=== PATIENT | male | born 1940 | race Caucasian/White ===

== ENCOUNTER 2017-07-27 15:41 | Emergency (ER) | payer MEDICARE, OTHER ==
[~2017-07-27] VITALS: Ht 160 cm; Wt 68.0 kg
[~2017-07-27 15:41] MED LIST: AMLO5 PO; AMOCLA250S PO; Amlodipine Bes2.5 MG PO; CALC.25 PO; CALCAVITD PO; CALCAVITDA PO; CHOL10002 PO; Calcitriol0.5 MCG PO; FENT25TP TOP; FURO40 PO; Ferrous Sulfat325 M2 PO; HYDACE10B PO; HYDACE5325 PO; HYDCHL12.5 PO; HYDCHL25 PO; HYDR1TAB94 PO; Hydrocodone-Ap1 EA20 PO; IBAN2.5 PO; Istalol2.5 ML; LISI20 PO; MAGOXI400 PO; MENS; METF500C PO; MORP15ER PO; Micro-K10 MEQ PO; OMEP20ER PO; OMEPRAZOLE MAGN20 MG PO; OXYC10ER PO; POTCHL10ER PO; SIMV40 PO; TAMS.4ER PO; TIMOPTIC 0.5%1 EACH BOTHEYES; TUMS300 MG PO; [UNRECOGNIZED DRUG - OTHER]
[2017-07-27 16:44] LABS: BASOPHILS ABSOLUTE AUTO 0.06 K/mm3 (0.00-0.23); BASOPHILS PERCENT AUTO 1 % (0-2); EOSINOPHILS ABSOLUTE AUTO 0.42 K/mm3 (0.00-0.68); EOSINOPHILS PERCENT AUTO 7 % (0-6); Hematocrit 34.5 % (37.0-53.0); Hemoglobin 10.9 g/dL (13.5-17.5); IMMATURE GRAN ABSOLUTE AUTO 0.02 K/mm3 (0.00-0.10); IMMATURE GRAN PERCENT AUTO 0 % (0-1); LYMPHOCYTES ABSOLUTE AUTO 1.17 K/mm3 (0.84-5.20); LYMPHOCYTES PERCENT AUTO 19 % (21-46); MONOCYTES ABSOLUTE AUTO 0.57 K/mm3 (0.16-1.47); MONOCYTES PERCENT AUTO 9 % (4-13); Mean Corpuscular HGB 29.3 pg (26.0-34.0); Mean Corpuscular HGB Conc 31.6 g/dL (31.5-36.5); Mean Corpuscular Volume 93 fL (80-100); Mean Platelet Volume 9.7 fL (9.1-12.4); NEUTROPHILS ABSOLUTE AUTO 3.86 K/mm3 (1.96-9.15); NEUTROPHILS PERCENT AUTO 63 % (41-73); Platelet Count 241 K/mm3 (150-400); RDW Coefficient Variation 12.7 % (11.7-14.2); RDW Standard Deviation 43.1 fL (35.1-46.3); Red Blood Cell Count 3.72 M/mm3 (4.30-5.90)
[2017-07-27 17:09] LABS: Albumin, Blood 3.3 g/dL (3.4-5.0); Albumin/Globulin Ratio 0.8 (0.8-1.8); Bilirubin, Total 0.3 mg/dL (0.1-1.0); Bun/Creatinine Ratio 11.6 (12.0-20.0); Calcium, Blood 8.9 mg/dL (8.5-10.1); Creatinine, Blood 1.72 mg/dL (0.60-1.20); Globulin, Blood 3.9 g/dL (2.2-4.0); Potassium, Blood 4.2 mmol/L (3.5-5.5); Total Protein, Blood 7.2 g/dL (6.4-8.2)
[2017-07-27] MEDS ORDERED: ALBU90OI INH (19:11)
[2017-07-27] MEDS ORDERED: Zithromax250 MG PO (19:11)
[2017-07-27] MEDS ORDERED: Atrovent Inha12.9 GM INH (19:11)
[2017-07-27] MEDS ORDERED: Prednisone50 MG PO (19:11)
== END 2017-07-27 21:00 | disposition home or self-care (01) ==
LOC: ER 15:41
PROVIDERS: Physician Assistant
DX: J44.1 Chronic obstructive pulmonary disease with (acute) exacerbation (principal); I10 Essential (primary) hypertension; E11.9 Type 2 diabetes mellitus without complications; Z87.442 Personal history of urinary calculi; Z87.891 Personal history of nicotine dependence; Z79.899 Other long term (current) drug therapy
CPT/HCPCS: 36415; 71046; 80053; 85025; 93005; 93010; 94640; 96365; 96375; 99283; J0456; J1100; J7050

== ENCOUNTER 2018-10-02 17:52 | Emergency (ER) | payer MEDICARE, OTHER ==
[~2018-10-02] VITALS: Ht 160 cm; Wt 64.9 kg
[~2018-10-02 17:52] MED LIST changes: +ALBU90OI INH; -Amlodipine Bes2.5 MG PO; +Atrovent Inha12.9 GM INH; +INSDET100 SC; +Kristalose20 GM PO; +Percocet 5-3251 EACH PO; +Prednisone50 MG PO; -TAMS.4ER PO; +Zithromax250 MG PO
[2018-10-02] MEDS ORDERED: LISI5 PO (19:35)
[2018-10-02 19:41] LABS: BASOPHILS ABSOLUTE AUTO 0.08 K/mm3 (0.00-0.23); BASOPHILS PERCENT AUTO 1 % (0-2); EOSINOPHILS ABSOLUTE AUTO 0.11 K/mm3 (0.00-0.68); EOSINOPHILS PERCENT AUTO 1 % (0-6); Hematocrit 38.7 % (37.0-53.0); Hemoglobin 12.1 g/dL (13.5-17.5); IMMATURE GRAN ABSOLUTE AUTO 0.02 K/mm3 (0.00-0.10); IMMATURE GRAN PERCENT AUTO 0 % (0-1); LYMPHOCYTES ABSOLUTE AUTO 1.45 K/mm3 (0.84-5.20); LYMPHOCYTES PERCENT AUTO 19 % (21-46); MONOCYTES ABSOLUTE AUTO 0.66 K/mm3 (0.16-1.47); MONOCYTES PERCENT AUTO 9 % (4-13); Mean Corpuscular HGB 29.6 pg (26.0-34.0); Mean Corpuscular HGB Conc 31.3 g/dL (31.5-36.5); Mean Corpuscular Volume 95 fL (80-100); Mean Platelet Volume 10.4 fL (9.1-12.4); NEUTROPHILS PERCENT AUTO 70 % (41-73); Platelet Count 198 K/mm3 (150-400); RDW Coefficient Variation 13.3 % (11.7-14.2); Red Blood Cell Count 4.09 M/mm3 (4.30-5.90); White Blood Cell Count 7.72 K/mm3 (4.00-11.30)
[2018-10-02 19:55] LABS: International Normalized Ratio 0.99; Prothrombin Time Results 10.5 Sec (9.7-11.5)
[2018-10-02 20:01] LABS: Albumin, Blood 3.6 g/dL (3.4-5.0); Albumin/Globulin Ratio 0.9 (0.8-1.8); Bilirubin, Total 0.6 mg/dL (0.1-1.0); Bun/Creatinine Ratio 11.5 (12.0-20.0); Calcium, Blood 9.4 mg/dL (8.5-10.1); Creatinine, Blood 1.83 mg/dL (0.60-1.20); Globulin, Blood 3.9 g/dL (2.2-4.0); Potassium, Blood 4.6 mmol/L (3.5-5.5); Total Protein, Blood 7.5 g/dL (6.4-8.2)
[2018-10-02] MEDS ORDERED: TAMS.4ER PO (20:51)
== END 2018-10-02 20:54 | disposition home or self-care (01) ==
LOC: ER 17:52
PROVIDERS: Nurse Practitioner Acute Care; Physician Assistant
DX: C78.7 Secondary malignant neoplasm of liver and intrahepatic bile duct (principal); C80.1 Malignant (primary) neoplasm, unspecified; R16.0 Hepatomegaly, not elsewhere classified; R74.8 Abnormal levels of other serum enzymes; Z79.899 Other long term (current) drug therapy; Z79.891 Long term (current) use of opiate analgesic; Z79.4 Long term (current) use of insulin; I10 Essential (primary) hypertension; E11.9 Type 2 diabetes mellitus without complications
CPT/HCPCS: 71250; 74176; 80053; 84153; 85025; 85610; 86304; 99284

== ENCOUNTER 2018-10-07 09:46 | Emergency (ER) | payer MEDICARE, OTHER ==
[~2018-10-07] VITALS: Ht 170.2 cm; Wt 66.7 kg
[~2018-10-07 09:46] MED LIST changes: +LISI5 PO; +TAMS.4ER PO
[2018-10-07] MEDS ORDERED: OMEPRAZOLE CAP 20M (10:45)
[2018-10-07] MEDS ORDERED: Lactulose10 GM/151 PO (10:45)
[2018-10-07 11:13] LABS: BASOPHILS ABSOLUTE AUTO 0.08 K/mm3 (0.00-0.23); BASOPHILS PERCENT AUTO 1 % (0-2); EOSINOPHILS ABSOLUTE AUTO 0.03 K/mm3 (0.00-0.68); EOSINOPHILS PERCENT AUTO 0 % (0-6); Hematocrit 40.3 % (37.0-53.0); Hemoglobin 12.3 g/dL (13.5-17.5); IMMATURE GRAN ABSOLUTE AUTO 0.02 K/mm3 (0.00-0.10); IMMATURE GRAN PERCENT AUTO 0 % (0-1); LYMPHOCYTES ABSOLUTE AUTO 0.54 K/mm3 (0.84-5.20); LYMPHOCYTES PERCENT AUTO 7 % (21-46); MONOCYTES PERCENT AUTO 6 % (4-13); Mean Corpuscular HGB 28.7 pg (26.0-34.0); Mean Corpuscular HGB Conc 30.5 g/dL (31.5-36.5); Mean Corpuscular Volume 94 fL (80-100); Mean Platelet Volume 10.6 fL (9.1-12.4); NEUTROPHILS ABSOLUTE AUTO 6.92 K/mm3 (1.96-9.15); NEUTROPHILS PERCENT AUTO 86 % (41-73); Platelet Count 163 K/mm3 (150-400); RDW Coefficient Variation 13.5 % (11.7-14.2); RDW Standard Deviation 45.9 fL (35.1-46.3); Red Blood Cell Count 4.28 M/mm3 (4.30-5.90); White Blood Cell Count 8.09 K/mm3 (4.00-11.30)
[2018-10-07 11:27] LABS: Albumin, Blood 3.4 g/dL (3.4-5.0); Albumin/Globulin Ratio 0.9 (0.8-1.8); Bilirubin, Total 1.4 mg/dL (0.1-1.0); Bun/Creatinine Ratio 9.1 (12.0-20.0); Calcium, Blood 9.1 mg/dL (8.5-10.1); Creatinine, Blood 1.86 mg/dL (0.60-1.20); Globulin, Blood 3.6 g/dL (2.2-4.0); Potassium, Blood 4.4 mmol/L (3.5-5.5)
[2018-10-07] MEDS ORDERED: MS Contin15 MG PO ×2 (12:45→12:50)
== END 2018-10-07 13:27 | disposition home or self-care (01) ==
LOC: ER 09:46
PROVIDERS: Emergency Medicine
DX: C22.8 Malignant neoplasm of liver, primary, unspecified as to type (principal); I12.9 Hypertensive chronic kidney disease with stage 1 through stage 4 chronic kidney disease, or unspecified chronic kidney disease; E11.22 Type 2 diabetes mellitus with diabetic chronic kidney disease; N18.4 Chronic kidney disease, stage 4 (severe); K21.9 Gastro-esophageal reflux disease without esophagitis; E78.5 Hyperlipidemia, unspecified; Z87.891 Personal history of nicotine dependence; Z79.899 Other long term (current) drug therapy; Z79.4 Long term (current) use of insulin
CPT/HCPCS: 36415; 80053; 85025; 96374; 96375; 99284-25; J2270; J2405

== ENCOUNTER 2018-10-21 03:03 | Inpatient (IN) | payer MEDICARE, OTHER ==
[~2018-10-21] VITALS: Ht 160 cm; Wt 67.6 kg
[~2018-10-21 03:03] MED LIST changes: +Lactulose10 GM/151 PO; +MS Contin15 MG PO; +OMEPRAZOLE CAP 20M
[2018-10-21 05:13] LABS: BASOPHILS ABSOLUTE AUTO 0.02 K/mm3 (0.00-0.23); BASOPHILS PERCENT AUTO 0 % (0-2); EOSINOPHILS PERCENT AUTO 0 % (0-6); Hematocrit 43.7 % (37.0-53.0); Hemoglobin 13.2 g/dL (13.5-17.5); IMMATURE GRAN ABSOLUTE AUTO 0.05 K/mm3 (0.00-0.10); IMMATURE GRAN PERCENT AUTO 0 % (0-1); LYMPHOCYTES ABSOLUTE AUTO 0.57 K/mm3 (0.84-5.20); LYMPHOCYTES PERCENT AUTO 5 % (21-46); MONOCYTES ABSOLUTE AUTO 0.71 K/mm3 (0.16-1.47); MONOCYTES PERCENT AUTO 6 % (4-13); Mean Corpuscular HGB 28.7 pg (26.0-34.0); Mean Corpuscular HGB Conc 30.2 g/dL (31.5-36.5); Mean Corpuscular Volume 95 fL (80-100); Mean Platelet Volume 10.9 fL (9.1-12.4); NEUTROPHILS ABSOLUTE AUTO 10.29 K/mm3 (1.96-9.15); NEUTROPHILS PERCENT AUTO 88 % (41-73); Platelet Count 181 K/mm3 (150-400); RDW Coefficient Variation 14.5 % (11.7-14.2); RDW Standard Deviation 50.3 fL (35.1-46.3); White Blood Cell Count 11.64 K/mm3 (4.00-11.30)
[2018-10-21 05:35] LABS: Albumin, Blood 2.8 g/dL (3.4-5.0); Albumin/Globulin Ratio 0.8 (0.8-1.8); Bilirubin, Total 4.7 mg/dL (0.1-1.0); Bun/Creatinine Ratio 23.8 (12.0-20.0); Calcium, Blood 8.8 mg/dL (8.5-10.1); Creatinine, Blood 2.81 mg/dL (0.60-1.20); Globulin, Blood 3.4 g/dL (2.2-4.0); Potassium, Blood 5.5 mmol/L (3.5-5.5); Total Protein, Blood 6.2 g/dL (6.4-8.2)
[2018-10-21 05:55] LABS: International Normalized Ratio 1.47
[2018-10-21 06:01] LABS: Ethanol (Alcohol), Blood, Med <3 mg/dL; Magnesium, Blood 2.5 mg/dL (1.6-2.4); Troponin I <0.015 ng/mL (0.000-0.040)
[2018-10-21 09:20] LABS: Bun/Creatinine Ratio 26.9 (12.0-20.0); Calcium, Blood 8.4 mg/dL (8.5-10.1); Creatinine, Blood 2.45 mg/dL (0.60-1.20); Potassium, Blood 5.5 mmol/L (3.5-5.5)
--- NOTE | 2018-10-21 10:34 | NUR ---
Met with patient and his in ER. Patient in for severe nausea nd abdominal pain and vomiting. Review of Patients difficultie for the past few weeks. Pt has had a chronic mild headache, mild dyspnea states its hard for him to take a deep breat. He has been having increased abdominal pain and cramping. Unable to tolerate food, Severe nause and vomiting times two weeks. He states he has scheduled biopsy for tomorrow. Pt and had some questions on plan of care. Brief review with patient and . He is very fatigued and after nausea meds and pain meds found some relief. Review of pt with he has been making statement of not wanting treatment. encouraged her to discuss it further with the cancer doctor advised that he may struggle with decision making due to his fatigue. They have discussed end or life care and she has an advance directive. She states he would get upset about talking of [place] and advance directive and would express his wishes and then want to wait on filling them our. We completed POLST from and gave her copies of a basic [place] will and POA form. Review of pt symptoms and needs with ER phsycian and nurse. updated [place] career development facilitator. Gave our care and encouraged her to get soem supportive care. She has been up most of the night and is going home to rest. will put in chaplian consutl for supportive care. she states she is a denominational in [place].
[2018-10-21 12:07] LABS: International Normalized Ratio 1.49; Prothrombin Time Results 15.2 Sec (9.7-11.5)
--- NOTE | 2018-10-21 17:11 | NUR ---
HANDOFF NOTE RECEIVED HANDOFF FROM ED NURSE MARY GRACE. 77 YR OLD MALE ADMITTED FOR DEHYDRATION/RT ABDOMINAL DISCOMFORT FOR PAST 2 WEEKS AND N/V X4 DAYS. CLEAR LIQUID DIET. DNI CODE STATUS. PT WAS DUE FOR LIVER BIOPSY FOR SUSPICION OF LIVER CANCER, BUT MAY NO LONGER WISH TO HAVE THE BIOPSY PERFORMED. 3 LPM VIA NC. VERY WEAK AND MAY NOT WALK YET. LACTIC ACID WAS 3.7 @ 7 AM, 2.7 @ 9AM, AND 2.5 @ NOON. SCD'S FOR DVT PREVENTION. CT OF ABD/PELVIS SHOWED HEPATOMEGALY W/LESIONS AND A MASS. HX: HTN, DM2, KIDNEY STONES, GERD, HYPERLIPIDEMIA, CKD, AND OSTEOPOROSIS.
--- NOTE | 2018-10-21 22:59 | NUR ---
Intake and output comment bladder scan amount was 490 X2 scans same amount both times @2300
[2018-10-22 01:54] LABS: Source, Urine Clean Catch
[2018-10-22 01:59] LABS: Blood, Urine Neg (Neg); Glucose Qualitative, Urine Neg (Neg); Ketones, Urine 1+ (Neg); Leukocyte Esterase, Urine 1+ (Neg); Nitrite, Urine Neg (Neg); Protein, Urine 1+ (Neg); Urobilinogen, Urine 3+ (Normal)
[2018-10-22 02:06] LABS: Bilirubin, Urine 1+ (Neg); Color, Urine Amber (P-Yellow)
[2018-10-22 02:07] LABS: Appearance, Urine Hazy (Clear); Red Blood Cells, Urine Not Seen /hpf (0-2)
[2018-10-22 02:08] LABS: Amorphous Light (0-Heavy); Bacteria Mod /hpf; Squamous Epithelial Cells Mod /hpf (Few)
[2018-10-22 05:10] LABS: BASOPHILS ABSOLUTE AUTO 0.02 K/mm3 (0.00-0.23); BASOPHILS PERCENT AUTO 0 % (0-2); EOSINOPHILS PERCENT AUTO 0 % (0-6); Hematocrit 42.5 % (37.0-53.0); Hemoglobin 12.7 g/dL (13.5-17.5); IMMATURE GRAN ABSOLUTE AUTO 0.11 K/mm3 (0.00-0.10); IMMATURE GRAN PERCENT AUTO 1 % (0-1); LYMPHOCYTES ABSOLUTE AUTO 0.52 K/mm3 (0.84-5.20); LYMPHOCYTES PERCENT AUTO 4 % (21-46); MONOCYTES PERCENT AUTO 6 % (4-13); Mean Corpuscular HGB 28.2 pg (26.0-34.0); Mean Corpuscular HGB Conc 29.9 g/dL (31.5-36.5); Mean Corpuscular Volume 94 fL (80-100); Mean Platelet Volume 10.8 fL (9.1-12.4); NEUTROPHILS ABSOLUTE AUTO 11.93 K/mm3 (1.96-9.15); NEUTROPHILS PERCENT AUTO 89 % (41-73); Platelet Count 148 K/mm3 (150-400); RDW Coefficient Variation 14.7 % (11.7-14.2); RDW Standard Deviation 51.1 fL (35.1-46.3); Red Blood Cell Count 4.51 M/mm3 (4.30-5.90); White Blood Cell Count 13.38 K/mm3 (4.00-11.30)
[2018-10-22 05:32] LABS: Albumin, Blood 2.6 g/dL (3.4-5.0); Albumin/Globulin Ratio 0.9 (0.8-1.8); Bilirubin, Total 4.9 mg/dL (0.1-1.0); Bun/Creatinine Ratio 29.5 (12.0-20.0); Calcium, Blood 8.7 mg/dL (8.5-10.1); Creatinine, Blood 2.07 mg/dL (0.60-1.20); Potassium, Blood 4.9 mmol/L (3.5-5.5); Total Protein, Blood 5.6 g/dL (6.4-8.2)
--- NOTE | 2018-10-22 07:23 | NUR ---
a+o, call light in reach, fluids infusing with no s/sx of infection or infiltration noted, walking rounds completed with day staff
--- NOTE | 2018-10-22 11:08 | NUR ---
CALLED RADIOLOGY (RE:BIOPSY) INFORMED RADIOLOGY OF PT'S ROOM NUMBER AND CONFIRMED SCHEDULED BIOPSY. THEY ARE TRYING FOR AROUND 11 AM TO COME GET THE PT FOR THIS PROCEDURE. PT HAS BEEN NPO SINCE MIDNIGHT, LAST NIGHT.
--- NOTE | 2018-10-22 11:43 | NUR ---
RADIOLOGY CALLED INFORMED ME THAT THE PROCEDURE CANNOT BE PERFORMED TODAY. I HAVE NOTIFIED THE HOSPITALIST. AWAITING FURTHER ORDERS
--- NOTE | 2018-10-22 12:07 | NUR ---
HOSPITALIST ROUNDED ON PT INFORMED ME THAT BIOPSY PROCEDURE WILL HAPPEN TOMORROW 10/23/18. THIS HAS BEEN ARRANGED BY THE HOSPITALIST. PT CAN RESUME HIS CLEAR LIQUID DIET FOR NOW UNTIL MIDNIGHT, WHERE HE WILL AGAIN BE NPO.
--- NOTE | 2018-10-22 12:14 | NUR ---
Patients called this morning to let us know she got a phone. Met with when she came in. she is tearfull and stressed helped he get some food and updated her on plan of care. Sent chaplian to see her. will get her follow up. we talked about notifying her family she does not call family will notify for her safety. Pt bladder scanned retaining urne and nursing to contact physician and pt scheduled for biopsy so plan can be set. pt denies pain this am.
--- NOTE | 2018-10-22 14:41 | NUR ---
Pal initial spiritual care visit: I met with spouse, Meena at bedside. Ted (Davin) appeared frail and slept through visit. Meena was tearful, but was honest about her concerns/fears. She does not appear to be in good health, and if this couple chooses to pursue hospice, I am concerned Meena will be unable to care for Davin. Meena has adult children that live out of the area. She has been hesitant to contact them. I provided calm, presence, gentle intake counselor, and assurance of care. Meena has been present for multiple family/friends deaths. She understand the process. However, she appears emotionally overwhelmed by the speed of Davin's decline. There is no support for this couple as they have been isolated since they moved to [place] from [place]. This is concerning as well. Meena responded well to me and asked for my contact information. I provided this, and will continue to provide support throughout this hospitalization.
--- NOTE | 2018-10-22 17:51 | NUR ---
SHIFT SUMMARY 77 YR OLD MALE ADMITTED FOR DEHYDRATION. DNR. POSSIBILITY OF LIVER CANCER. BIOPSY THAT HAD BEEN PLANNED FOR TODAY HAS BEEN RE-SCHEDULED FOR TOMORROW. HOSPITALIST HAS MADE THOSE ARRANGEMENTS. PT NEEDS TO BE NPO @ MIDNIGHT TONIGHT AGAIN FOR THE PROCEDURE TOMORROW. SCD'S FOR DVT PREVENTION. PT IS RECEIVING IV FLUIDS LR @ 125 ML/HR, ALSO IV ANTIBIOTICS ARE SCHEDULED. PERIODICALLY WE HAVE BLADDER SCANNED THIS PT BUT WE DISCOVERED THAT IF THE PT STANDS UP AT BEDSIDE TO URINATE, HE IS ABLE TO VOID ADEQUATELY.
--- NOTE | 2018-10-23 07:07 | NUR ---
a+o at baseline, wainwright, wearing NC but no o2 is flowing, lr infusing with no s/sx of infection or infiltration, call light in reach, walking rounds completed with day staff
--- NOTE | 2018-10-23 10:35 | NUR ---
PT TRANSPORTED TO RADIOLOGY IN NO ACUTE DISTRESS VIA STRETCHER FOR LIVER BIOPSY.
--- NOTE | 2018-10-23 11:52 | NUR ---
PT RETURNED TO ROOM FROM PROCEDURE. C/O RIGHT SIDED BX PAIN. MOVING AND AROUND IN BED APPEARS UNCOMFORTABLE.
--- NOTE | 2018-10-23 12:58 | NUR ---
SPOKE WITH DR. CARPENTER REPORTED PT'S BIOPSY AND LOWER BACK PAIN WITH SOB. NEW ORDERS RECEIVED. PT HAS INCREASED RR @26 AND PULSE IN 110'S. MEDICATED FOR PAIN.
--- NOTE | 2018-10-23 14:08 | NUR ---
CALLED DR. CARPENTER AND LEFT VOICEMAIL. PT C/O 12/21 PAIN AROUND BIOPSY SITE. LYING IN BED RR 26 OTHER VSS. AFEBRILE. SPEAKING CALMLY. APPEARS MORE COMFORTABLE THAN WHEN HE HAD JUST ARRIVED BACK FROM PROCEDURE. LS CLEAR YET DIMINISHED THROUGHOUT. AT 40% CLEAR LIQUID LUNCH TRAY.
--- NOTE | 2018-10-23 15:05 | NUR ---
PT STATES "I FEEL A LOT BETTER, THE PAIN IS MUCH BETTER NOW".
--- NOTE | 2018-10-23 16:55 | NUR ---
Pal Spiritual Care visit: I met with pts spouse, Meena at bedside. We have an easy rapport. She tearfully told me of her dissapointing phone call with her dtr. Meena was hoping, once her dtr understood what was happening to Davin, she would [place] here from [place] for support. Unfortunately, this did not happen. I provided emotional affirmation and gentle res counselor. Meena verbalizes understanding that Davin is nearing end-of-life and she cannot care for him on her own. She is open to hearing about placement options for his sake. Meena is clearly overwhemed by all this. She has a good friend who would travel here to help if Meena asked. I strongly encouraged allowing this friend to do this as Meena appears very alone. She responded well to me and left for the day at conclusion of visit. Davin appeared comfortable and to be sleeping throughout visit. I will remain available.
--- NOTE | 2018-10-23 18:08 | NUR ---
SHIFT SUMMARY LIVER BIOPSY TODAY. C/O PAIN TO RIGHT BIOPSY SITE. MEDICATED PER MD ORDER. CONFUSED AT TIMES. ABLE TO SIT ON EDGE OF BED INDEPENDENTLY WITH BED ALARM APPLIED. SPOUSE AT BEDSIDE FOR MUCH OF DAY. MAY NOT BE ABLE TO DISCHARGE HOME IS UNABLE TO CARE FOR PATIENT DUE TO MULTIPLE MEDICAL AND MOBILITY PROBLEMS. COOPERATIVE AND CALM THROUGHOUT DAY.
--- NOTE | 2018-10-24 06:49 | NUR ---
a+o, call light in reach, saline locked, room air, medicated for pain
[2018-10-24 07:34] LABS: BASOPHILS ABSOLUTE AUTO 0.01 K/mm3 (0.00-0.23); BASOPHILS PERCENT AUTO 0 % (0-2); EOSINOPHILS ABSOLUTE AUTO 0.05 K/mm3 (0.00-0.68); EOSINOPHILS PERCENT AUTO 0 % (0-6); Hematocrit 38.7 % (37.0-53.0); Hemoglobin 11.6 g/dL (13.5-17.5); IMMATURE GRAN ABSOLUTE AUTO 0.07 K/mm3 (0.00-0.10); IMMATURE GRAN PERCENT AUTO 1 % (0-1); LYMPHOCYTES PERCENT AUTO 7 % (21-46); MONOCYTES ABSOLUTE AUTO 0.87 K/mm3 (0.16-1.47); MONOCYTES PERCENT AUTO 7 % (4-13); Mean Corpuscular Volume 93 fL (80-100); Mean Platelet Volume 11.3 fL (9.1-12.4); NEUTROPHILS ABSOLUTE AUTO 10.01 K/mm3 (1.96-9.15); NEUTROPHILS PERCENT AUTO 85 % (41-73); Platelet Count 136 K/mm3 (150-400); RDW Coefficient Variation 15.2 % (11.7-14.2); RDW Standard Deviation 51.2 fL (35.1-46.3); Red Blood Cell Count 4.15 M/mm3 (4.30-5.90); White Blood Cell Count 11.81 K/mm3 (4.00-11.30)
[2018-10-24 07:40] LABS: Bun/Creatinine Ratio 26.3 (12.0-20.0); Calcium, Blood 8.3 mg/dL (8.5-10.1); Creatinine, Blood 1.9 mg/dL (0.60-1.20); Potassium, Blood 4.4 mmol/L (3.5-5.5)
--- NOTE | 2018-10-24 17:37 | NUR ---
PATIENT A/O TO SELF AND FAMILY VERY WITHDRAWN AND [place]. PAIN BETTER CONTROLLED WITH INCREASED DOSE OF DLIAUDID. 20G IV TO R AC WNL AND SL BETWEEND ABX. TOLERATING SMALL AMOUNTS OF CLEAR LIQUID DIET. ZOFRAN GIVEN X1 TO TREAT NAUSEA. VOIDING IN URINAL. ESTELLA AND BEDSIDE FOR MOST OF THE SHIFT AND SEEMED TO BE QUITE FORGETFUL, IE FORGETING THAT THE DOCTOR HAD STOPPED BY MOMENTS AFTER SHE LEFT. FALL PRECAUTIONS IN PLACE PER UNIT PROTOCOL. PATIENT UP TO CHAIR FOR BREAKFAST AND REFUSED FOR LUNCH DINNER. WORKED WITH PT TODAY, BUT REFUSED TO WORK WITH OT.
--- NOTE | 2018-10-24 17:48 | NUR ---
Pal spiritual care visit: I met with pt and spouse twice today. The first, I was able to speak with Davin as he was awake/alert, but still frail. He told me he knows he is dying and is "ok" with it. "I'm ready to find out what happens next." He has no specific spiritual beleifs, but tells me he knows there is something after this life. He states he is tired of hurting. Meena was at bedside. and tells me she is waiting for physician to come with biopsy results. On the surface, she smiles easily. However, once engaged in theraputic conversation, she becomes tearful. This is understandable and appropriate. Later, as I was leaving another pt's room, Meena rushed towards me, out of breath and in tears. "I am having trouble remebering what is going on." I spoke to her calmly and gently. Normalizing her experience, and walked her slowly back to pt's room. She had just spoken to her dtr and became disturbed when she could not explain Davin's dx. I got her permission to T/C her dtr, Pratima [phone]. Meena could not remember where she parked her car, so arranged an escort and golf-leather cartridge belt maker to help her find it. T/C to dtr. She told me that her mom has been having increasing problems with short-term memory. Pratima was surprised to learn Davin's dire dx/prognosis. I encouraged her to come be with her mom as soon as possible. Pratima agreed. Clearly, Meena will need her dtr's presence to help navigate what needs to happen next. Meena did not remember speaking to discharge planning. Nor could she recall any recommendations. Meena will greatly benefit from continued palliative care guidence and support. Davin states that he is tired of hurting. Giving Officer services will remain available.
--- NOTE | 2018-10-25 07:12 | NUR ---
ulises, a+o to self and location, call light in reach, bsr completed with day staff, successfully medicated for pain
--- NOTE | 2018-10-25 15:49 | NUR ---
Pt visit this afternoon. Pt is resting in a recliner chair upon arrival. Pt has relatives and friends visiting from out of town. Pt's and daughter not present at time of visit. Pt is A&Ox4 and reports pain but in unable to give pain severity. His eyes opens and shuts frequently during visit indicating he is struggling to stay awake. Palliative Care will F/U when Pt's and daughter is present. Spoke with Pt's bedside nurse Antonella and she reports Pt's pain is unmanaged at this time. He is requiring frequent use of both breakthrough pain medications. Discussed physicians notes from today and family is considering hospice but is waiting to talk with Dr Venegas before making a decision. Called and spoke with hospital pharmacist Austyn regarding a long acting pain medication. Based off of Pt's need for breakthrough pain medication Austyn recommends and prefers 50mcg Fentanyl Patch for long acting pain medication. Alternate is MS Contin 60mg Q [address] Garcia and received V/O for Fentanyl Patch 50mcg. This RN placed order in [facility]. Palliative Care will remain available.
--- NOTE | 2018-10-25 17:29 | NUR ---
Pt visit this afternoon. Pt is resting in bed with his eyes closed. Offered quiet gentle voice and therapeutic touch with no response. Pt appears comfortable with no signs of distress at this time. Spoke with Pt's bedside nurse Libby and she reports concerns that Pt's friends and congregational members keeping calling requesting for Pt to not be medicated so he is awake to sign over his estate to the congregational. Libby reports informing congregational members that Pt is incapacitated and is no condition to be signing and would not know what he is signing. Libby reports congregational members have plans to bring ip technology transactions attorney in on Sunday to have Pt sign over estate. Spoke with charge nurse Phillip of these concerns. Phillip reports that she will remain vigilant and assist advocating for Pt. Palliative Care will remain available.
--- NOTE | 2018-10-25 18:36 | NUR ---
Received call from Pt's bedside nurse Antonella and she reports Pt's and daughter would like a visit from palliative care. Arrived to Pt's room. Pt resting in recliner chair with his eyes closed. Pt appears comfortable. Pt's and daughter are present during visit. Listened as family expresses concerns of Pt's decline and they discuss what Pt's wishes are. Discussed hospice as an option. Family expresses interest. Educated Family on hospice philosophy with V/U made by both and daughter. Educated on initiating comfort care and comfort care philosophy. Both are agreeable. This RN aroused Pt and discussed his wishes. Pt reports that would not want to pursue treatment and wants to remain comfortable. Discussed comfort care and hospice philosophy with Pt. Pt states that he wants comfort care and hospice. Educated Pt and family on hospice agencies to choose from. Pt and family will consider over the weekend and report choice on Sunday. and daughter expresses concerns regarding 's ability to care for Pt at home. Encouraged and family to speak with other family members and encourage to help with care. Also discussed appying for medicaid to assist with in home caregivers. and daughter expressess interest. Educated and daughter on the lengthy process of medicaid and the possibility of Pt expiring before being accepted. V/U made by and daughter. No other concerns reported at this time. Spoke with bedside nurse Antonella and reported Pt and family's decision for comfort care and hospice. Plan: Will discuss Pt's wishes with [facility] doctor. Will place social service referral to aid with information and determination qulifications. Palliative Care will remain available for symptom management.
--- NOTE | 2018-10-25 18:51 | NUR ---
Late entry from previous note. Recommend same day hospice upon hospital discharge. Pt will need hospital bed, bed side table, and bedside commode.
--- NOTE | 2018-10-26 06:17 | NUR ---
requested to be allowed to stay in chair, "it is more comfortable" for whole night, repositioned to avoid pressure injury, call light in reach, room air, infusing with no s/sx of infection or infiltration, successfully medicated for pain, will continue to monitor, manage and treat until bsr completed with day staff
--- NOTE | 2018-10-26 12:52 | NUR ---
Pt visit this afternoon. Pt resting in a recliner chair and reports 6/10 pain. Pt appears lethargic but is orientated. Pt's Meena, and step daughter Pratima is present during visit. Answered questions regarding hospice. POLST has been completed and will fax copy to medical records upon MD signature. Pratima requests a private conversation. Spoke with Pratima in private office and listened as she expresses concerns of her ability to care for Pt and Pt's . She reports other family members are not willing to assist with his care and she has a job that requires her to travel. Pratima is tearful at times and this RN offered emotional support. Pratima reports Meena is also going to need assistance with care due to forgetfullnes and medication non compliance. Instructed Pratima her concerns will be relayed to ambulatory care coordinator. No other concerns reported at this time. Reported to bedside nurse of Pt's pain. Bedside nurse will offer pain medication. Palliative Care will remain available.
--- NOTE | 2018-10-26 17:36 | NUR ---
PATIENT IS ALERT AND ORIENTED AND COOPERATIVE WITH CARE. HE IS [place], HEARING AIDS IN PLACE. FAMILY HAS BEEN AT THE BEDSIDE THROUGHOUT THE DAY. PATIENT HAS BEEN PLACED ON COMFORT CARE TODAY WITH PLANS TO GO HOME ON HOSPICE. PATIENT USES THE URINAL. ATTENDS ARE IN PLACE. COMPLAINS OF BACK AND ABDOMINAL PAIN. CLEAR LIQUID DIET WITH A POOR APPETITE. PATIENT HAS BEEN IN THE RECLINER THROUGHOUT THE DAY, REPOSITIONED BY STAFF. WILL CONTINUE TO MONITOR.
--- NOTE | 2018-10-26 23:18 | NUR ---
10/26/18 2200 PT SLEEPING IN LOUNGE CHAIR PER HIS REQUEST. STATES HE IS MORE COMFORTABLE IN CHAIR THAN BED WHEN ASSESSED AT 2009.
--- NOTE | 2018-10-27 00:05 | NUR ---
10/27/18 0000 ASSISTED TO BED. UNABLE TO VOID. BLADDER SCAN =[id number]. ABDOMEN TIGHT.
[2018-10-27 01:01] LABS: Source, Urine Catheter
[2018-10-27 01:04] LABS: Appearance, Urine Clear (Clear); Bilirubin, Urine 2+ (Neg); Blood, Urine 1+ (Neg); Color, Urine Amber (P-Yellow); Glucose Qualitative, Urine Neg (Neg); Ketones, Urine 1+ (Neg); Leukocyte Esterase, Urine 1+ (Neg); Nitrite, Urine Neg (Neg); Protein, Urine 2+ (Neg); Specific Gravity, Urine 1.015 (1.003-1.022); Urobilinogen, Urine 2+ (Normal)
--- NOTE | 2018-10-27 01:04 | NUR ---
10/27/18 0040 INSERTION OF # 14 COUDE CATHETER AFTER NOT ABLE TO INSERT REGULAR CATHETER. CATH SECURED WITH STABLIZER. RETURN OF CLEAR MEA URINE. 220 ML.
[2018-10-27 01:12] LABS: Bacteria Mod /hpf; Red Blood Cells, Urine 0-2 /hpf (0-2); Squamous Epithelial Cells Not Seen /hpf (Few); White Blood Cells, Urine 0-2 /hpf (0-5)
[2018-10-27 01:13] LABS: Granular Casts 0-2 /lpf (0); WBC Cast 0-2 /lpf (0)
--- NOTE | 2018-10-27 02:09 | NUR ---
10/27/18 0200 PT INSISTED TO GET BACK UP INTO LOUNGE CHAIR BED "IS TOO UNCOMFORTABLE". MEDICATED PER MAR FOR DISCOMFORT. EDGE PATENT. ORAL FLUIDS GIVEN OF WATER AND APPLE JUICE.
--- NOTE | 2018-10-27 03:08 | NUR ---
10/27/18 0305 PT INSISTED ON EDGE CATH BEING TAKEN OUT IT WAS TOO PAINFUL. RN DC'D EDGE. 110 ML CLEAR YELLOW URINE IN BAG. URINAL AT BEDSIDE TABLE.
--- NOTE | 2018-10-27 04:45 | NUR ---
10/27/18 0400 PT SLEEPING COMFORTABLY IN LOUNGE CHAIR AT THIS TIME.
--- NOTE | 2018-10-27 06:26 | NUR ---
10/27/18 0610 SLEEPING WELL IN LOUNGE CHAIR WITHOUT DISTRESS OR S/S.
--- NOTE | 2018-10-27 07:55 | NUR ---
PATIENT IS UP IN RECLINER SLEEPING. DOES NOT APPEAR TO BE IN ANY DISTRESS. CHAIR ALARM IN PLACE. CALL LIGHT WITHIN REACH. RN WILL CONTINUE TO MONITOR.
--- NOTE | 2018-10-27 11:58 | NUR ---
PATIENT APPEARS TO BE RESTING COMFORTABLY, NO SIGNS OF DISTRESS PRESENT. PATIENT HAS NOT RESPONDED TO ANY VERBAL STIMULI THIS SHIT AND HAS NOT OPENED HIS EYES. REPOSITIONING Q2 HOURS AND PRN. RN WILL CONTINUE TO MONITOR.
--- NOTE | 2018-10-27 13:51 | NUR ---
[facility] C[facility] COMFORT CARE VISIT - Case conferenced with bedside RN and reviewed EMR before visit. Pt is reclined in [facility] with head elevated and positioned to right side. RN reports pt has been unresponsive today and has preferred the reclined chair vs bed. He is wearing attends after bauer was inserted and then d/c'd yesterday due to pt's reported discomfort. Attends has been changed twice today. RN and I repositioned pt for comfort as he was sliding towards foot of chair. With repositioning pt opened eyes wider but was unable to focus or make eye contact with me. He has not been given anything for pain/anxiety this shift yet. Pt could not answer when asked if he was hurting. I am not noticing nonverbal indicators of pain, anxiety or distress. His respirations are noted to have wet rattle in chest and upper airway. Discussed administering scopolomine patch or atropine gtts to pt now. Pt's airway with audible congestion/secretions not clearing. Skin warm and sl diaphoretic. Extremities warm at this time. 2-3+ pitting edema of LE eric. Pt appears to be actively dying at this time. I would not recommend trying to transfer him in this state. His was not present and has gone home for the day. RN states reported she is having a hard time and could not stay any longer and would not be returning today. Plan to reassess in am and case conference with RN, and care managers.
--- NOTE | 2018-10-27 14:19 | NUR ---
PATIENT RESTING IN RECLINER CHAIR. DOES NOT APPEAR TO BE IN ANY DISTRESS. PATIENT HAS NO SIGNS PAIN OR AGITATION. RN MEDICATED THE PATIENT WITH ATROPINE DROPS PER E JESSICA FOR RATTLING. SUCTION IS SET UP AT THE BEDSIDE FOR PRN USE WHEN NEEDED. REPOSITIONED PATIENT, ORAL CARE PERFORMED. RN WILL CONTINUE TO MONITOR.
--- NOTE | 2018-10-27 16:15 | NUR ---
PATIENT APPEARS TO BE RESTING COMFORTABLY. NO SIGNS OF PAIN OR DISTRESS. REPOSITIONED AND CHANGED. PATIENT FEELS WARM, ROOM TEMPERATURE TURNED DOWN AND HEAVY BLANKET SREMOVED. RN SHA CONTINUE TO MONITOR.
--- NOTE | 2018-10-27 18:19 | NUR ---
SHIFT SUMMARY PATIENT ON COMFORT CARE. HAS NOT BEEN REPSONSIVE TO VERBAL STIMULI AT ALL THIS SHIFT. PATIENT HAS NOT OPENED HIS EYES THIS SHIFT. PATIENT IN RECLINER THROUGHOUT THE SHIFT PER FAMILY REQUEST. APPEARED TO BE RESTING COMFORTABLY FOR MOST OF THE SHIFT. RN MEDICATED X1 FOR PAIN, PATIENT APPEARED RESTLESS AND WAS QUEITLY MOANING. MEDICATED X2 WITH ATROPINE DROPS. NO OTHER ACUTE CHANGES. RN WILL CONTINUE TO MONITOR.
--- NOTE | 2018-10-27 19:24 | NUR ---
10/27/181924 VERY LETHARGIC BUT DID OPEN EYES WHEN NAME CALLED. SHOOK HEAD "NO" WHEN ASKED IF HE IS IN PAIN. NO DISTRESS NOTED. SITTING UP IN LOUNGE CHAIR. PALE. SOFT MUSIC TURNED ON FOR COMFORT.ORAL CARE GIVEN WITH HALYARD SUCTION SWAB AND LIP MOISTURIZER.
--- NOTE | 2018-10-28 01:29 | NUR ---
10/28/18 0100 RAAD LIFT USED TO GET PT FROM LOUNGE CHAIR TO BED. NO C/O PAIN OR OTHER S/S DURING TRANSFER. ORAL AND JANE-CARE GIVEN.
--- NOTE | 2018-10-28 03:12 | NUR ---
10/28/18 0310 SLEEPINBG IN BED WITHOUT DISTRESS. RESP AT 20 AND UNLABORED.
--- NOTE | 2018-10-28 05:08 | NUR ---
10/28/18 0500 SLIGHT FACIAL GRIMACE BUT SHAKES HEAD "NO" WHEN ASKED IF HAVING PAIN. RN GAVE PAIN MED TO PROMOTE COMFORT. ORAL/JANE-CARE GIVEN AFTER REPOSITIONED. RESP. UNLABORED.
--- NOTE | 2018-10-28 08:22 | NUR ---
PATIENT RESTING IN BED. APPEARS TO BE RESTLESS AND MAKING QUIET MOANING NOISES. RN ASKED PATIENT IF HE IS HAVING PAIN, HE MUMBLED INCOHERENTLY AND OPENED HIS EYES SLIGHTLY. RN MEDICATED WITH ROXANOL AND ATROPINE FOR SECRETIONS. SUCTION SET UP AT THE BEDSIDE. IS AT THE BEDSIDE.
--- NOTE | 2018-10-28 09:25 | NUR ---
PAL CARE COMFORT CARE VISIT. at bedside this am. She looks rested and we discussed need for self care right now. Encouraged her to go home and rest when needed. Home is nearby. Pt is slightly more able to respond and maintain eye contact with me briefly this am. He is not able to talk to me. Less rattle in airway noted than yest am. Atropine gtts being used and pt had received Roxanol less than an hour ago. I did not note nonverbal indicators of pain at this time. As I left room two LARD TUB WASHER's came in to reposition and provide personal care. Pt is a daphnie lift for transfers currently. Will remain available for s/s management and EOL care support.
--- NOTE | 2018-10-28 14:48 | NUR ---
PAL CARE COMFORT CARE VISIT: Second comfort care assessment today. Pt is more responsive with facial expressions. Repositioned for comfort and noted moaning and grimacing with change of position to left side lying with hob elevated again. Report of visit to RN and she will medicate per eMAR for comfort. Spent time listening to and supporting her. Her lissette and malachi are visiting but will be going home to [facility] tomorrow and her son will arrive on Sunday for support to her. She is aware that pt's time is most likely limited to days at this time. Pt's color is changing to more palor and sl jaundiced appearing. His respirations are shallow but less labored than yesterday with less congestion and less rattle noted. Will cont to follow daily. Case conferenced with Architecture Technician earlier, who will also be visiting. Spoke with ARNALDO and Pasquale also on current status.
--- NOTE | 2018-10-28 16:17 | NUR ---
PATIENT APPEARS TO BE SLIGHTY RESTLESS. UPON REPOSITIONING PATIENT WAS MOANING. RN MEDICATED WITH ROXANOL FOR PAIN. ATTENDS CHANGED. FAMILY IS AT THE BEDSIDE. RN WILL CONTINUE TO MONITOR.
--- NOTE | 2018-10-29 00:19 | NUR ---
10/28/18 5726 OIL TANK CAR CLEANER CALLED RN THAT PT WITHOUT RESP. RN CONFIRMED NO PULSE AND NO RESP. ON PT. RN INFORMED JAMIE LOPEZ, SHIRT FINISHER OF PT'S PASSING. RN NOTIFIED HOSPITALIST, DR CHILDRESS NOTIFIED AT 2369. RN CALLED ESTELLA,HIS AND NOTIFIED HER AND SHE REQUESTED PASTORAL CARE AND SHE WOULD NOTIFY DAUGHTER, YULIANA. DOES NOT HAVE A HOME CHOSEN YET. WILL BE COMING INTO HOSPITAL TO SEE PT SOON SHE SPEAKS WITH DAUGHTER. BODY PREPARED FOR VIEWING AND BELONGINGS BAGGED.
--- NOTE | 2018-10-29 01:04 | NUR ---
Pastoral care visit. I met with the decedent's spouse Meena who was at the bedside upon arrival. Meena expresses her thoughts and emotions congruently and proceeds to reminisce. Empathic listening and presence provided. Consolatory prayer employed and emotional guidance extended. Meena remained at bedside thereafter.
--- NOTE | 2018-10-29 01:45 | NUR ---
10/29/18 O115 ARRIVED TO SEE PT AT 0035. TEARFUL BUT EXPECTED HIM TO PASS. RN LISTENED AND PROVIDED SUPPORT EMOTIONALLY. AT BEDSIDE AND GIVEN DRINK AND LIST OF POSSIBLE FUNERALS TO SENT PT. SHE PHONED HER DAUGHTER AND STILL NOT SURE OF PLACE WHEN SHE LEFT AT 0115. LOADING SUPERVISOR ESCORTED HER TO CAR. TOOK PT'S BELONGINGS WITH HER. JING LOPEZ,ANAYA Quevedo INFORMED OF IMPORTANCE OF FINDING A HOME SOON. VERBALIZES UNDERSTANDING.
--- NOTE | 2018-10-29 02:30 | NUR ---
ESTELLA DEFERRED HOME DECISION TO HER DAUGHTER (YULIANA) WHO ATTEMPTED TO CONTACT PT'S BROTHER (SELVIN) AND SISTER (LISA) FOR INSTRUCTION. THEY WERE UNABLE TO BE REACHED SO YULIANA OPTED TO HAVE DISPATCH DETERMINE HOME FOR CREMATION. [facility] WAS DESIGNATED BY [employer]PATCH AND WAS NOTIFIED BY RN. PT ISN'T A DONOR CANDIDATE SO HOME IS EN ROUTE AT THIS TIME. BELONGINGS WERE SENT HOME W/ESTELLA AFTER PASTORAL CARE VISITED W/HER AT PT'S BEDSIDE.
--- NOTE | 2018-10-29 02:55 | NUR ---
10/29/18 0245 [facility] HERE FOR THE BODY. PT PAPERWORK GIVEN TO RICO HERNANDEZ.
== END 2018-10-28 23:35 | DRG 436 ==
LOC: ER 03:03 → ERHOLD 03:04 → MEDS 16:27
PROVIDERS: Emergency Medicine; Hospitalist; ADMIT Internal Medicine
PROC: 0FB13ZX Excision of Right Lobe Liver, Percutaneous Approach, Diagnostic (ICD-10-PCS; principal; 2018-10-23)
DX: C78.7 Secondary malignant neoplasm of liver and intrahepatic bile duct (principal); J98.11 Atelectasis; J44.0 Chronic obstructive pulmonary disease with (acute) lower respiratory infection; E87.2 Acidosis; E44.0 Moderate protein-calorie malnutrition; K21.9 Gastro-esophageal reflux disease without esophagitis; M81.0 Age-related osteoporosis without current pathological fracture; Z51.5 Encounter for palliative care; Z87.891 Personal history of nicotine dependence; E86.0 Dehydration; E88.09 Other disorders of plasma-protein metabolism, not elsewhere classified; N18.3 Chronic kidney disease, stage 3 (moderate); E11.22 Type 2 diabetes mellitus with diabetic chronic kidney disease; I12.9 Hypertensive chronic kidney disease with stage 1 through stage 4 chronic kidney disease, or unspecified chronic kidney disease; M54.9 Dorsalgia, unspecified; G89.29 Other chronic pain; F03.90 Unspecified dementia, unspecified severity, without behavioral disturbance, psychotic disturbance, mood disturbance, and anxiety; R09.02 Hypoxemia; C80.1 Malignant (primary) neoplasm, unspecified
CPT/HCPCS: 36415; 47000; 51702; 71045; 71046; 77012; 80048; 80053; 81001; 82043; 82140; 82570; 82728; 83540; 83550; 83605; 83690; 83735; 83880; 84145; 84484; 85025; 85610; 85730; 86850; 86900; 86901; 87040; 87077; 87086; 87186; 88307; 88341; 88342; 93005; 93010; 96361; 96365; 96366; 96374; 96375; 96376; 97116; 97162; 97165; 97530; 97535; 99285-25; G0378; G0480; J0780; J1170; J2405; J2543; J7050; J7120